=== PATIENT | female | born 1940 | race Caucasian/White ===

== ENCOUNTER → 2017-03-13 | Outpatient (CLI) | payer SELFPAY ==
[2017-03-13 13:37] LABS: CHCM 33.5; HCT 40.4 % (34.0-46.0); HDW 2.55; HGB 13.8 gm/dL (11.4-16.0); MCH 30.7 pg (25.0-35.0); MCHC 34.1 g/dL (31.0-37.0); MCV 90.1 fL (80.0-100.0); Mean Platelet Volume 6.7; RBC 4.48 m/uL (3.80-5.40); RDW 13.9 % (11.5-15.5); WBC 7.8 k/uL (3.8-10.6)
[2017-03-13 15:05] LABS: Erythrocyte Sedimentation Rate 4 mm/hr (0-20)
== END | disposition home or self-care (01) ==
LOC: LABWHC1 13:13
PROVIDERS: ATTEND Ophthalmology
DX: H47.012 Ischemic optic neuropathy, left eye (principal)
CPT/HCPCS: 36415; 85027; 85652; 86140

== ENCOUNTER 2017-03-20 11:13 | Day surgery (SDC) | payer SELFPAY ==
[2017-03-19 13:55] VITALS: BMI 23.5
[~2017-03-20 11:13] MED LIST: DEXAMETHASONE SOD PHOSPHATE 10 MG/ML 1 ML VIAL IV ONE; LACTATED RINGERS 1,000 ML IV SCH; LIDOCAINE 1% 20 ML VIAL (10MG/ML) FOR IV START INTRADERMA PRN; Pre Op ABX Message 1 EACH MISC MISCELLANE ONE
[2017-03-20 11:39] VITALS: TEMP 98.2
--- NOTE | 2017-03-20 11:42 | P.GSHP ---
History of Present Illness H&P Date: 03/20/17 Chief Complaint: Partial left eye blindness This patient previously had an episode of right eye blindness and has minimal vision in that eye. She has had a bit of partial left eye blindness. Temporal artery biopsy was requested by ophthalmology. - Constitutional Constitutional: Reports chronic pain, Denies chills, Denies fever - EENT Eyes: denies blurred vision, denies pain Ears, nose, mouth and throat: Denies headache, Denies sore throat - Cardiovascular Cardiovascular: Denies chest pain, Denies dyspnea on exertion, Denies orthopnea , Denies shortness of breath - Respiratory Respiratory: Denies cough, Denies 7 - Gastrointestinal Gastrointestinal: Denies abdominal pain, Denies diarrhea, Denies nausea, Denies vomiting - Genitourinary (Female) Genitourinary: Denies dysuria, Denies hematuria - Genitourinary (Male) Genitourinary: Denies dysuria, Denies hematuria - Musculoskeletal Comment: Patient has severe rheumatoid arthritis and other forms of rheumatoid disease Musculoskeletal: Denies myalgias - Integumentary Integumentary: Denies pruritus, Denies rash - Neurological Neurological: Denies numbness, Denies weakness - Psychiatric Psychiatric: Denies anxiety, Denies depression - Endocrine Endocrine: Denies fatigue, Denies weight change - Hematologic/Lymphatic Hematologic/Lymphatic: Denies easy bleeding, Denies easy bruising, Denies lymphedema - Allergic/Immunologic Allergic/Immunologic: Denies anaphylaxis, Denies angioedema, Denies urticaria Past Medical History Past Medical History: Eye Disorder, GERD/Reflux, Rheumatoid Arthritis (RA), Thyroid Disorder Additional Past Medical History / Comment(s): HX OF DIVERTICULITIS , OVER ACTIVE BLADDER., H- PYLORI., 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 , STATES LEFT EYE LOSING BLOOD FLOW AND POOR VISION., HX OF MULTIPLE FEET SURGERIES WITH PARTIAL LEFT FOOT AMPUTATION - DIFFICULTY WALKING DISTANCE - USES WHEELCHAIR. 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 History of Any Multi-Drug Resistant Organisms: MRSA Date of last positivie culture/infection: ?2006 MDRO Source:: SKIN Past Surgical History: Appendectomy, Back Surgery, Cholecystectomy, Hernia Repair, Hysterectomy, Joint Replacement, Orthopedic Surgery Additional Past Surgical History / Comment(s): HEMORRHOIDS, TOTAL LEFT KNEE, RIGHT ANKLE, BRADLEY SHOULDERS, JOINTS IN HANDS, , NUMBEROUS FOOT SURGERIES AND PARTIAL LEFT FOOT AMPUTATION. Past Anesthesia/Blood Transfusion Reactions: No Reported Reaction Additional Past Anesthesia/Blood Transfusion Reaction / Comment(s): HX OF BLOOD TRANSFUSIONS ( NO REACTIONS) Past Psychological History: Anxiety Smoking Status: Former smoker Past Alcohol Use History: None Reported Additional Past Alcohol Use History / Comment(s): QUIT SMOKING 1996. SMOKED SOCIALLY. SMOKED APPROX. 43 YEARS. Past Drug Use History: None Reported - Past Family History Sister(s) Family Medical History: Cancer Additional Family Medical History / Comment(s): LUNG CANCER Medications and Allergies Home Medications Medication Instructions Recorded Confirmed Type Acetaminophen Tab [Tylenol Tab] 500 mg PO QID PRN 03/19/17 03/19/17 History Atorvastatin [Lipitor] 5 mg PO DAILY 03/19/17 03/19/17 History Cholecalciferol (Vitamin D3) 2,000 unit PO DAILY 03/19/17 03/19/17 History [Vitamin D3] Diclofenac Sodium Gel [Voltaren 2 gm TOPICAL QID PRN 03/19/17 03/19/17 History Gel] Docusate [Colace] 100 mg PO BID PRN 03/19/17 03/19/17 History LORazepam [Ativan] 1 mg PO HS 03/19/17 03/19/17 History Levothyroxine Sodium [Synthroid] 175 mcg PO DAILY 03/19/17 03/19/17 History [place]-3 Fatty Acids/Fish Oil [Fish 1 each PO DAILY 03/19/17 03/19/17 History Oil 1,000 mg Softgel] Oxybutynin Chloride [Ditropan] 5 mg PO HS 03/19/17 03/19/17 History Pantoprazole [Protonix] 40 mg PO BID 03/19/17 03/19/17 History predniSONE 20 mg PO TID 03/19/17 03/19/17 History Allergies Allergy/AdvReac Type Severity Reaction Status Date / Time adalimumab [From Humira] Allergy Unknown Palpitations, Verified 03/19/17 13:28 Sweats adhesive Allergy Unknown Unknown Verified 03/19/17 13:28 codeine Allergy Unknown Unknown Verified 03/19/17 13:28 latex Allergy Unknown Unknown Verified 03/19/17 13:36 morphine Allergy Unknown Unknown Verified 03/19/17 13:28 rofecoxib [From Vioxx] Allergy Unknown Palpitations, Verified 03/19/17 13:28 Sweats. methotrexate Allergy Palpitations, Verified 03/19/17 13:28 Sweats aspirin AdvReac Unknown Upset Verified 03/19/17 13:28 Stomach faust inhibitors Allergy Unknown Unknown Uncoded 03/19/17 13:28 gold Allergy Unknown Unknown Uncoded 03/19/17 13:28 Surgical - Exam Osteopathic Statement: *. No significant issues noted on an osteopathic structural exam other than those noted in the History and Physical/Consult. Vital Signs Temp Pulse Resp BP Pulse Ox 98.2 F 56 L 16 166/70 95 03/20/17 11:37 03/20/17 11:37 03/20/17 11:37 03/20/17 11:37 03/20/17 11:37 - General well developed, well nourished, no distress - Eyes normal ocular movement, no icteric - ENT no hearing loss, no congestion - Neck no masses, no bruits, trachea midline - Respiratory normal expansion, normal respiratory effort, clear to auscultation - Cardiovascular Rhythm: regular - Abdomen Abdomen: soft, non tender, no guarding, no rigid, no rebound - Integumentary no rash, no abnormal pigmentation - Neurologic no disoriented, no combative - Musculoskeletal Patient has deformities of the hands and feet secondary to rheumatoid arthritis. She is status post left transmetatarsal amputation. - Psychiatric oriented to time, oriented to person, oriented to place, speech is normal, memory intact Assessment and Plan (1) Temporal arteritis Status: Acute Plan: We discussed with the patient the options. She wishes to proceed as requested by ophthalmology with left temporal artery biopsy. We discussed the procedure and its risks in detail with her and her .
[2017-03-20] MEDS ORDERED: ONDANSETRON 4 MG/2 ML VIAL IVP ONE (12:01)
[2017-03-20 12:02] LABS: Glucose,Whole Blood 95 mg/dL (75-99)
[2017-03-20] MEDS ORDERED: LIDOCAINE 1% INJ 10MG/ML (20 ML MDV) SQ ONE ×2 (12:38)
[2017-03-20 13:39] VITALS: BP 125/66; PULSE 59; RESP 18
--- NOTE | 2017-03-27 13:32 | P.PCN ---
Date of Procedure: 03/20/17 Preoperative Diagnosis: Temporal arteritis Postoperative Diagnosis: Same Procedure(s) Performed: Left temporal artery biopsy Implants: Anesthesia: local (1% lidocaine plain) Surgeon: Jonas Silva Estimated Blood Loss (ml): 20 Pathology: none sent (Left temporal artery) Condition: stable Disposition: PACU Indications for Procedure: Patient has left eye vision loss. Operative Findings: No significant abnormalities were seen Description of Procedure: With the patient supine position, under benefit of locally infiltrated lidocaine , having been prepped and draped in standard fashion, we made an incision just anterior to the left ear. We kept our incision above the external auditory canal. We exposed the temporal artery. We dissected out a generous segment of the left temporal artery. We ligated it proximally and distally and cut in between. We sent the specimen for pathology review. Hemostasis was excellent after establishing it with electrocautery. We closed the incision with subcuticular Vicryl. Sterile dressings were applied. The patient tolerated the procedure well and was taken recovery area in stable condition.
== END 2017-03-20 13:59 | disposition home or self-care (01) ==
LOC: OR 11:13
PROVIDERS: ATTEND Thoracic Surgery (Cardiothoracic Vascular Surgery)
DX: I77.3 Arterial fibromuscular dysplasia (principal); K21.9 Gastro-esophageal reflux disease without esophagitis; H54.12 Blindness, left eye, low vision right eye; I69.398 Other sequelae of cerebral infarction; M06.9 Rheumatoid arthritis, unspecified; E07.9 Disorder of thyroid, unspecified; N32.81 Overactive bladder; Z87.891 Personal history of nicotine dependence; Z79.52 Long term (current) use of systemic steroids; Z79.899 Other long term (current) drug therapy; Z88.6 Allergy status to analgesic agent; Z91.040 Latex allergy status; Z88.5 Allergy status to narcotic agent; Z88.8 Allergy status to other drugs, medicaments and biological substances; Z91.09 Other allergy status, other than to drugs and biological substances
CPT/HCPCS: 88305; 37609; J1100; J2405; J2001

== ENCOUNTER 2018-07-27 09:06 | Emergency (ER) | payer OTHER ==
[2018-07-27 09:12] VITALS: RESP 16; TEMP 97.3
[2018-07-27] MEDS ORDERED: SODIUM CHLORIDE 0.9% 1,000 ML IV STA (09:35)
[2018-07-27] MEDS ORDERED: LORazepam 2 MG/ML INJ IV STA (09:35)
[2018-07-27 10:12] LABS: Basophils # (A) 0.1 k/uL (0-0.2); Basophils % (A) 1 %; Eosinophils # (A) 0.1 k/uL (0-0.7); Eosinophils % (A) 2 %; HCT 44.6 % (34.0-46.0); HGB 15.1 gm/dL (11.4-16.0); Lymphocytes # (A) 1.7 k/uL (1.0-4.8); Lymphocytes % (A) 20 %; MCH 29.9 pg (25.0-35.0); MCHC 33.9 g/dL (31.0-37.0); MCV 88.2 fL (80.0-100.0); Mean Platelet Volume 6.8; Monocytes # (A) 0.4 k/uL (0-1.0); Monocytes % (A) 5 %; Neutrophils % (A) 72 %; Platelet Count 216 k/uL (150-450); RBC 5.05 m/uL (3.80-5.40); WBC 8.3 k/uL (3.8-10.6)
--- NOTE | 2018-07-27 10:21 | ED ---
General Adult HPI - General Chief complaint: Back Pain/Injury Stated complaint: back pain Time Seen by Provider: 07/27/18 09:25 Source: patient, RN notes reviewed Mode of arrival: wheelchair Limitations: no limitations - History of Present Illness Initial comments: Patient 78-year-old female presented to the emergency room today with a chief complaint of lower back pain. Patient does admit that symptoms started 4 days ago. She states she had pain in the left lower side. She states it is now radiating over to the right. She does admit some discomfort in the front as well. Patient states normal bowel movement. No diarrhea. Does admit that pain is worse with movements. Denies any injury or trauma. Denies any other complaints. Patient denies any recent fever, chills, shortness of breath, chest pain, back pain, abdominal pain, nausea or vomiting, numbness or tingling, headaches or visual changes, or any other complaints. - Related Data Home Medications Medication Instructions Recorded Confirmed Acetaminophen Tab [Tylenol Tab] 500 mg PO TID PRN 03/19/17 07/27/18 Atorvastatin [Lipitor] 5 mg PO DAILY 03/19/17 07/27/18 Cholecalciferol (Vitamin D3) 2,000 unit PO DAILY 03/19/17 07/27/18 [Vitamin D3] Docusate [Colace] 100 mg PO BID PRN 03/19/17 07/27/18 LORazepam [Ativan] 1 mg PO HS 03/19/17 07/27/18 Oxybutynin Chloride [Ditropan] 5 mg PO HS 03/19/17 07/27/18 Pantoprazole [Protonix] 40 mg PO BID 03/19/17 07/27/18 Apixaban [Eliquis] 2.5 mg PO BID 07/27/18 07/27/18 L.acidoph,Paracasei, B.lactis 1 cap PO BID 07/27/18 07/27/18 [Probiotic] Levothyroxine Sodium [Synthroid] 75 mcg PO DAILY 07/27/18 07/27/18 predniSONE 10 mg PO BID 07/27/18 07/27/18 Allergies Allergy/AdvReac Type Severity Reaction Status Date / Time adalimumab [From Humira] Allergy Unknown Palpitations, Verified 07/27/18 09:23 Sweats adhesive Allergy Unknown Unknown Verified 07/27/18 09:23 codeine Allergy Unknown Unknown Verified 07/27/18 09:23 latex Allergy Unknown Unknown Verified 07/27/18 09:23 morphine Allergy Unknown Unknown Verified 07/27/18 09:23 rofecoxib [From Vioxx] Allergy Unknown Palpitations, Verified 07/27/18 09:23 Sweats. methotrexate Allergy Palpitations, Verified 07/27/18 09:23 Sweats Sulfa (Sulfonamide Allergy Unknown Verified 07/27/18 09:23 Antibiotics) aspirin AdvReac Unknown Upset Verified 07/27/18 09:23 Stomach faust inhibitors Allergy Unknown Unknown Uncoded 07/27/18 09:12 gold Allergy Unknown Unknown Uncoded 07/27/18 09:12 Review of Systems ROS Statement: Those systems with pertinent positive or pertinent negative responses have been documented in the HPI. ROS Other: All systems not noted in ROS Statement are negative. 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 , STATES LEFT EYE LOSING BLOOD FLOW AND POOR VISION., HX OF MULTIPLE FEET SURGERIES WITH PARTIAL LEFT FOOT AMPUTATION - DIFFICULTY WALKING DISTANCE - USES WHEELCHAIR. 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 History of Any Multi-Drug Resistant Organisms: MRSA Date of last positivie culture/infection: ?2006 MDRO Source:: SKIN Past Surgical History: Appendectomy, Back Surgery, Cholecystectomy, Hernia Repair, Hysterectomy, Joint Replacement, Orthopedic Surgery Additional Past Surgical History / Comment(s): HEMORRHOIDS, TOTAL LEFT KNEE, RIGHT ANKLE, BRADLEY SHOULDERS, JOINTS IN HANDS, , NUMBEROUS FOOT SURGERIES AND PARTIAL LEFT FOOT AMPUTATION. Past Anesthesia/Blood Transfusion Reactions: No Reported Reaction Additional Past Anesthesia/Blood Transfusion Reaction / Comment(s): HX OF BLOOD TRANSFUSIONS ( NO REACTIONS) Past Psychological History: Anxiety Smoking Status: Former smoker Past Alcohol Use History: None Reported Past Drug Use History: None Reported - Past Family History Sister(s) Family Medical History: Cancer Additional Family Medical History / Comment(s): LUNG CANCER General Exam - General Exam Comments Initial Comments: General: The patient is awake and alert, in mild distress. Eye: Pupils are equal, round and reactive to light. Extra-ocular movements are intact. No nystagmus. There is normal conjunctiva bilaterally. No signs of icterus. Ears, nose, mouth and throat: There are moist mucous membranes and no oral lesions. Neck: The neck is supple, there is no tenderness or JVD. Cardiovascular: There is a regular rate and rhythm. No murmur, rub or gallop is appreciated. Respiratory: Lungs are clear to auscultation, respirations are non-labored, breath sounds are equal. No wheezes, stridor, rales, or rhonchi. Gastrointestinal: Abdomen soft on palpation. Patient does have tenderness right lower quadrant. Mild tenderness over left and right CVA. No rebound or guarding. Musculoskeletal: Normal ROM, no tenderness. Sensation intact. Strength 5/5. Pulses equal bilaterally 2+. Neurological: A&O x 3. CN II-XII intact, There are no obvious motor or sensory deficits. Coordination appears grossly intact. Speech is normal. Skin: Skin is warm and dry and no rashes or lesions are noted. Psychiatric: Cooperative, appropriate mood & affect, normal judgment. Limitations: no limitations Course Vital Signs 07/27/18 07/27/18 09:07 12:03 Temperature 97.3 F L Pulse Rate 86 70 Respiratory 16 16 Rate Blood Pressure 150/72 162/76 O2 Sat by Pulse 99 100 Oximetry EKG Findings - EKG Comments: EKG Findings:: EKG performed at 1044: Shows normal sinus rhythm at 60 bpm. KS interval 60. QRS 70. QT/QTc 420/420. No acute changes. Medical Decision Making - Medical Decision Making Case discussed in detail with attending physician Dr. Cohen. Patient reexamined at this time shows no signs of distress. Her CT of the abdomen and pelvis did reveal some degenerative changes in the lower lumbar spine. Did show some fecal stasis. No sign of obstruction. No other acute findings. Patient was given enema here the emergency room by nursing staff. Patient feeling much better at this time. Patient's labs were reviewed. Patient is advised follow-up family doctor tomorrow. Patient will be discharged home advised return if any symptoms increase or worsen. - Lab Data Result diagrams: 07/27/18 10:00 07/27/18 09:58 Lab Results 07/27/18 07/27/18 07/27/18 Range/Units 09:58 10:00 10:00 WBC 8.3 (3.8-10.6) k/uL RBC 5.05 (3.80-5.40) m/uL Hgb 15.1 (11.4-16.0) gm/dL Hct 44.6 (34.0-46.0) % MCV 88.2 (80.0-100.0) fL MCH 29.9 (25.0-35.0) pg MCHC 33.9 (31.0-37.0) g/dL RDW 14.0 (11.5-15.5) % Plt Count 216 (150-450) k/uL Neutrophils % 72 % Lymphocytes % 20 % Monocytes % 5 % Eosinophils % 2 % Basophils % 1 % Neutrophils # 6.0 (1.3-7.7) k/uL Lymphocytes # 1.7 (1.0-4.8) k/uL Monocytes # 0.4 (0-1.0) k/uL Eosinophils # 0.1 (0-0.7) k/uL Basophils # 0.1 (0-0.2) k/uL PT (9.0-12.0) sec INR (<1.2) APTT (22.0-30.0) sec Sodium 140 (137-145) mmol/L Potassium 4.3 (3.5-5.1) mmol/L Chloride 107 (98-107) mmol/L Carbon Dioxide 25 (22-30) mmol/L Anion Gap 8 mmol/L BUN 17 (7-17) mg/dL Creatinine 0.81 (0.52-1.04) mg/dL Est GFR (CKD-EPI)AfAm 80 (>60 ml/min/1.73 sqM) Est GFR (CKD-EPI)NonAf 69 (>60 ml/min/1.73 sqM) Glucose 103 H (74-99) mg/dL Calcium 8.9 (8.4-10.2) mg/dL Total Bilirubin 0.5 (0.2-1.3) mg/dL AST 24 (14-36) U/L ALT 33 (9-52) U/L Alkaline Phosphatase 74 (38-126) U/L Total Creatine Kinase 68 (30-135) U/L CK-MB (CK-2) 0.4 (0.0-2.4) ng/mL CK-MB (CK-2) Rel Index 0.6 Troponin I (0.000-0.034) ng/mL Total Protein 6.7 (6.3-8.2) g/dL Albumin 4.0 (3.5-5.0) g/dL Amylase 56 (30-110) U/L Lipase 46 (23-300) U/L Urine Color Urine Appearance (Clear) Urine pH (5.0-8.0) Ur Specific [place] (1.001-1.035) Urine Protein (Negative) Urine Glucose (UA) (Negative) Urine Ketones (Negative) Urine Blood (Negative) Urine Nitrite (Negative) Urine Bilirubin (Negative) Urine Urobilinogen (<2.0) mg/dL Ur Leukocyte Esterase (Negative) 07/27/18 07/27/18 07/27/18 Range/Units 10:00 10:00 10:35 WBC (3.8-10.6) k/uL RBC (3.80-5.40) m/uL Hgb (11.4-16.0) gm/dL Hct (34.0-46.0) % MCV (80.0-100.0) fL MCH (25.0-35.0) pg MCHC (31.0-37.0) g/dL RDW (11.5-15.5) % Plt Count (150-450) k/uL Neutrophils % % Lymphocytes % % Monocytes % % Eosinophils % % Basophils % % Neutrophils # (1.3-7.7) k/uL Lymphocytes # (1.0-4.8) k/uL Monocytes # (0-1.0) k/uL Eosinophils # (0-0.7) k/uL Basophils # (0-0.2) k/uL PT 10.3 (9.0-12.0) sec INR 1.1 (<1.2) APTT 22.1 (22.0-30.0) sec Sodium (137-145) mmol/L Potassium (3.5-5.1) mmol/L Chloride (98-107) mmol/L Carbon Dioxide (22-30) mmol/L Anion Gap mmol/L BUN (7-17) mg/dL Creatinine (0.52-1.04) mg/dL Est GFR (CKD-EPI)AfAm (>60 ml/min/1.73 sqM) Est GFR (CKD-EPI)NonAf (>60 ml/min/1.73 sqM) Glucose (74-99) mg/dL Calcium (8.4-10.2) mg/dL Total Bilirubin (0.2-1.3) mg/dL AST (14-36) U/L ALT (9-52) U/L Alkaline Phosphatase (38-126) U/L Total Creatine Kinase (30-135) U/L CK-MB (CK-2) (0.0-2.4) ng/mL CK-MB (CK-2) Rel Index Troponin I <0.012 (0.000-0.034) ng/mL Total Protein (6.3-8.2) g/dL Albumin (3.5-5.0) g/dL Amylase (30-110) U/L Lipase (23-300) U/L Urine Color Light Yellow Urine Appearance Clear (Clear) Urine pH 5.5 (5.0-8.0) Ur Specific [place] 1.004 (1.001-1.035) Urine Protein Negative (Negative) Urine Glucose (UA) Negative (Negative) Urine Ketones Negative (Negative) Urine Blood Negative (Negative) Urine Nitrite Negative (Negative) Urine Bilirubin Negative (Negative) Urine Urobilinogen <2.0 (<2.0) mg/dL Ur Leukocyte Esterase Negative (Negative) Disposition Clinical Impression: Abdominal pain, Low back pain Disposition: HOME SELF-CARE Condition: Good Instructions: Abdominal Pain (ED) Additional Instructions: Please follow-up with family doctor tomorrow. Please return to emergency room if the symptoms increase or worsen or for any other concerns. Is patient prescribed a controlled substance at d/c from ED?: No Referrals: None,Stated [Primary Care Provider] - 1-2 days Time of Disposition: 13:57
[2018-07-27 10:23] LABS: INR 1.1 (<1.2); Partial Thromboplastin Time 22.1 sec (22.0-30.0); Prothrombin Time 10.3 sec (9.0-12.0)
[2018-07-27 10:25] LABS: Calcium 8.9 mg/dL (8.4-10.2); Potassium 4.3 mmol/L (3.5-5.1); Total Bilirubin 0.5 mg/dL (0.2-1.3); Total Protein 6.7 g/dL (6.3-8.2)
[2018-07-27 10:50] LABS: Creatine Kinase MB 0.4 ng/mL (0.0-2.4)
[2018-07-27 11:07] LABS: Appearance,Urine Clear (Clear); Bilirubin,Urine Negative (Negative); Blood,Urine Negative (Negative); Color,Urine Light Yellow; Glucose,Urine (UA) Negative (Negative); Ketones,Urine Negative (Negative); Leukocyte Esterase,Urine Negative (Negative); Nitrite,Urine Negative (Negative); PH, Urine 5.5 (5.0-8.0); Protein,Urine Negative (Negative); Specific Gravity,Urine 1.004 (1.001-1.035); Urobilinogen,Urine <2.0 mg/dL (<2.0)
--- NOTE | 2018-07-27 12:05 | CT ---
EXAMINATION TYPE: CT abdomen pelvis w con DATE OF EXAM: 07/27/2018 COMPARISON: None HISTORY: Back pain CT DLP: 695.50 mGycm CONTRAST: CT scan of the abdomen and pelvis is performed without Oral Contrast and with IV Contrast, patient in jected with 100 ml mL of Isovue 300. FINDINGS: LUNG BASES-: No visible nodule. No infiltrate. LIVER/GB: Cholecystectomy changes noted. No space occupying hepatic lesion. Biliary tree is of nor mal caliber. PANCREAS: No inflammation. No distinct mass. SPLEEN: No splenic enlargement. No lesion seen. ADRENALS: No nodule. No thickening. KIDNEYS/BLADDER: No hydronephrosis. No nephrolithiasis. No distinct renal mass. Urinary bladder g rossly unremarkable. BOWEL: Normal appendix. Normal bowel caliber. No inflammation. Moderate the rectosigmoid fecal fabian is. GENITAL ORGANS: No gross abnormality. LYMPH NODES: No greater than 1cm abdominal or pelvic lymph nodes are appreciated. AORTA: No significant abnormality. OSSEOUS STRUCTURES: Severe degenerative disc disease throughout the lumbar spine with endplate sclero sis and spondylosis. Mild central stenosis suggested at L3-4 and L4-5. OTHER: No significant additional abnormality is seen. IMPRESSION: 1. No acute intra-abdominal process appreciated. 2.Severe degenerative disc disease throughout the lumbar spine with endplate sclerosis and spondylosi s. Mild central stenosis suggested at L3-4 and L4-5. 3.. Moderate the rectosigmoid fecal stasis.
[2018-07-27 14:10] VITALS: BP 150/73; PULSE 72
== END 2018-07-27 14:05 | disposition home or self-care (01) ==
LOC: EC 09:06
DX: M54.5 Low back pain (principal); R10.9 Unspecified abdominal pain; K21.9 Gastro-esophageal reflux disease without esophagitis; F41.9 Anxiety disorder, unspecified; E07.9 Disorder of thyroid, unspecified; Z87.891 Personal history of nicotine dependence; Z86.14 Personal history of Methicillin resistant Staphylococcus aureus infection; Z86.73 Personal history of transient ischemic attack (TIA), and cerebral infarction without residual deficits; Z90.49 Acquired absence of other specified parts of digestive tract; Z90.710 Acquired absence of both cervix and uterus; Z96.652 Presence of left artificial knee joint; Z89.432 Acquired absence of left foot; Z98.890 Other specified postprocedural states; Z79.01 Long term (current) use of anticoagulants; Z79.52 Long term (current) use of systemic steroids; Z79.899 Other long term (current) drug therapy; Z88.2 Allergy status to sulfonamides; Z88.5 Allergy status to narcotic agent; Z88.6 Allergy status to analgesic agent; Z88.8 Allergy status to other drugs, medicaments and biological substances; Z91.040 Latex allergy status; Z91.048 Other nonmedicinal substance allergy status
CPT/HCPCS: 36415; 93005; 80053; 82150; 82550; 82553; 83690; 84484; 85025; 85610; 85730; 81003; 74177; 99284; 96374; 96361; J2060; Q9967

== ENCOUNTER 2018-07-30 12:30 | Emergency (ER) | payer OTHER ==
[2018-07-30] MEDS ORDERED: SODIUM CHLORIDE 0.9% 500 ML 500 ML IV STA (13:12)
[2018-07-30] MEDS ORDERED: LORazepam 2 MG/ML INJ IV STA (13:13)
[2018-07-30] MEDS ORDERED: DIAZEPAM 5 MG/ML 2 ML INJ IVP STA (13:17)
--- NOTE | 2018-07-30 13:30 | ED ---
General Adult HPI - General Chief complaint: Back Pain/Injury Stated complaint: back pain Time Seen by Provider: 07/30/18 12:49 Source: patient, family, RN notes reviewed Mode of arrival: ambulatory Limitations: no limitations - History of Present Illness Initial comments: 78-year-old female with a past medical history of rheumatoid arthritis, GERD, diverticulitis presents to the emergency determine for a chief complaint of right lower back pain times 8 days. Patient states the pain starts in her right lower back and radiates into her right hip. Patient states the pain is worsened with walking and sitting certain ways. She states nothing makes the pain better. She states she did take extra strength Tylenol today. Patient also states she has pain in her lower abdomen. Patient states she was given an enema at the last time she was here which may have helped momentarily but states that it did not relieve her pain. She has not had a bowel movement in the past 2 days. She denies any difficulty urinating. She denies any numbness in the greater buttock. She denies any weakness in the legs. She does admit to lumbar spine surgery 15 years ago. Patient also has a history of appendectomy and cholecystectomy with multiple orthopedic surgeries and joint replacements. 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 Patient has no other complaints at this time including shortness of breath, chest pain, nausea or vomiting, headache, or visual changes. - Related Data Home Medications Medication Instructions Recorded Confirmed Atorvastatin [Lipitor] 5 mg PO DAILY 03/19/17 07/30/18 Docusate [Colace] 100 mg PO BID PRN 03/19/17 07/30/18 LORazepam [Ativan] 0.5 - 1 mg PO HS 03/19/17 07/30/18 Oxybutynin Chloride [Ditropan] 5 mg PO HS 03/19/17 07/30/18 Pantoprazole [Protonix] 40 mg PO BID 03/19/17 07/30/18 Apixaban [Eliquis] 2.5 mg PO BID 07/27/18 07/30/18 Levothyroxine Sodium [Synthroid] 75 mcg PO DAILY 07/27/18 07/30/18 predniSONE 5 mg PO DAILY 07/30/18 07/30/18 Previous Rx's Medication Instructions Recorded predniSONE 50 mg PO DAILY #5 tablet 07/30/18 Allergies Allergy/AdvReac Type Severity Reaction Status Date / Time adalimumab [From Humira] Allergy Unknown Palpitations, Verified 07/30/18 16:01 Sweats adhesive Allergy Unknown Unknown Verified 07/30/18 16:01 codeine Allergy Unknown Unknown Verified 07/30/18 16:01 latex Allergy Unknown Unknown Verified 07/30/18 16:01 morphine Allergy Unknown Unknown Verified 07/30/18 16:01 rofecoxib [From Vioxx] Allergy Unknown Palpitations, Verified 07/30/18 16:01 Sweats. methotrexate Allergy Palpitations, Verified 07/30/18 16:01 Sweats Sulfa (Sulfonamide Allergy Unknown Verified 07/30/18 16:01 Antibiotics) aspirin AdvReac Unknown Upset Verified 07/30/18 16:01 Stomach faust inhibitors Allergy Unknown Unknown Uncoded 07/30/18 12:36 gold Allergy Unknown Unknown Uncoded 07/30/18 12:36 Review of Systems ROS Statement: Those systems with pertinent positive or pertinent negative responses have been documented in the HPI. ROS Other: All systems not noted in ROS Statement are negative. 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 , STATES LEFT EYE LOSING BLOOD FLOW AND POOR VISION., HX OF MULTIPLE FEET SURGERIES WITH PARTIAL LEFT FOOT AMPUTATION - DIFFICULTY WALKING DISTANCE - USES WHEELCHAIR. 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 History of Any Multi-Drug Resistant Organisms: MRSA Date of last positivie culture/infection: ?2006 MDRO Source:: SKIN Past Surgical History: Appendectomy, Back Surgery, Cholecystectomy, Hernia Repair, Hysterectomy, Joint Replacement, Orthopedic Surgery Additional Past Surgical History / Comment(s): HEMORRHOIDS, TOTAL LEFT KNEE, RIGHT ANKLE, BRADLEY SHOULDERS, JOINTS IN HANDS, , NUMBEROUS FOOT SURGERIES AND PARTIAL LEFT FOOT AMPUTATION. Past Anesthesia/Blood Transfusion Reactions: No Reported Reaction Additional Past Anesthesia/Blood Transfusion Reaction / Comment(s): HX OF BLOOD TRANSFUSIONS ( NO REACTIONS) Past Psychological History: Anxiety Smoking Status: Former smoker Past Alcohol Use History: None Reported Past Drug Use History: None Reported - Past Family History Sister(s) Family Medical History: Cancer Additional Family Medical History / Comment(s): LUNG CANCER General Exam Limitations: no limitations General appearance: alert, in no apparent distress Head exam: Present: atraumatic, normocephalic, normal inspection Eye exam: Present: normal appearance, PERRL, EOMI. Absent: scleral icterus, conjunctival injection, periorbital swelling ENT exam: Present: normal exam, mucous membranes moist Neck exam: Present: normal inspection, full ROM. Absent: tenderness, meningismus, lymphadenopathy Respiratory exam: Present: normal lung sounds bilaterally. Absent: respiratory distress, wheezes, rales, rhonchi, stridor Cardiovascular Exam: Present: regular rate, normal rhythm, normal heart sounds. Absent: systolic murmur, diastolic murmur, rubs, gallop, clicks GI/Abdominal exam: Present: soft, tenderness (tenderness noted in the RLQ ), guarding (minimal guarding noted in the right lower quadrant, ), normal bowel sounds. Absent: distended, rebound, rigid Rectal exam: Present: normal inspection, normal rectal tone. Absent: fecal impaction Extremities exam: Present: tenderness (tenderness to palpation of right lateral hip), normal capillary refill (cap refill < 2 seconds, DP pulse 2+ in RLE), other (full passive flexion and extension of right hip, limited external rotation of right hip to about 15 degrees with increased pain) Back exam: Present: tenderness (Tenderness noted to the right low back around the SI joint. No lumbar spine tenderness). Absent: full ROM (45 degrees flexion of lumbar spine causing increased pain), vertebral tenderness Neurological exam: Present: alert, oriented X3, CN II-XII intact Psychiatric exam: Present: normal affect, normal mood Course Vital Signs 07/30/18 07/30/18 07/30/18 12:34 14:17 17:18 Temperature 97.8 F 97.9 F Pulse Rate 79 63 57 L Respiratory 24 22 16 Rate Blood Pressure 156/92 158/77 126/64 O2 Sat by Pulse 97 99 100 Oximetry EKG Findings - EKG Comments: EKG Findings:: Normal sinus rhythm, ventricular rate 60, VT interval 114, QRS duration 70, QTC 440 Medical Decision Making - Medical Decision Making 78-year-old female presents to the emergency department for chief complaint of right-sided back pain 8 days. Patient states the pain starts in her right lower back and radiates into her right hip. Pain is worsened with movement. Nothing seems to make it better although she did take Tylenol. Patient in its to mild pain in the lower abdomen states she was given an enema which may have helped momentarily but did not relieve her pain. She denies any difficulty urinating or numbness of the greater buttock. No weakness in the legs. On exam patient has full passive range of motion of the right hip with pain with external rotation of the right hip. Neurovascular intact in the right lower extremity. Tenderness noted to the right SI joint and right lateral hip. Patient is about 45 flexion of the lumbar spine. Patient is having episodes of incontinence here in the ER. She states this does sometimes occur however it is much worse than normal. Rectal tone intact. Patient also had a post void residual of 525. Due to nature of incontinence and back pain MRI was ordered which showed no cord compression however severe forming on the narrowing L4 to L5 on the left at L3 to L4 on the right. Patient was able to empty her bladder using bed lazaro. X-ray KUB showed a nonobstructive bowel gas pattern. Patient had a CT abdomen and pelvis a few days ago without any significant abnormalities. Patient was given Valium and 2 of morphine and is feeling significantly better. Did offer admission for pain control the patient states she would rather go home. Patient was given prednisone. She will follow -up with Dr. Priec. She'll return here if she has any worsening symptoms. Discussed with Dr robbins. Patient did give me permission and asked me to speak with insurance company. - Lab Data Result diagrams: 07/30/18 13:47 07/30/18 13:47 Lab Results 07/30/18 07/30/18 07/30/18 Range/Units 13:47 13:47 13:47 WBC 8.7 (3.8-10.6) k/uL RBC 5.11 (3.80-5.40) m/uL Hgb 15.3 (11.4-16.0) gm/dL Hct 44.5 (34.0-46.0) % MCV 87.2 (80.0-100.0) fL MCH 30.0 (25.0-35.0) pg MCHC 34.4 (31.0-37.0) g/dL RDW 14.0 (11.5-15.5) % Plt Count 225 (150-450) k/uL Neutrophils % 68 % Lymphocytes % 25 % Monocytes % 5 % Eosinophils % 1 % Basophils % 0 % Neutrophils # 5.9 (1.3-7.7) k/uL Lymphocytes # 2.2 (1.0-4.8) k/uL Monocytes # 0.4 (0-1.0) k/uL Eosinophils # 0.1 (0-0.7) k/uL Basophils # 0.0 (0-0.2) k/uL PT 10.2 (9.0-12.0) sec INR 1.0 (<1.2) APTT 22.6 (22.0-30.0) sec Sodium 140 (137-145) mmol/L Potassium 4.6 (3.5-5.1) mmol/L Chloride 105 (98-107) mmol/L Carbon Dioxide 25 (22-30) mmol/L Anion Gap 10 mmol/L BUN 16 (7-17) mg/dL Creatinine 0.87 (0.52-1.04) mg/dL Est GFR (CKD-EPI)AfAm 73 (>60 ml/min/1.73 sqM) Est GFR (CKD-EPI)NonAf 63 (>60 ml/min/1.73 sqM) Glucose 98 (74-99) mg/dL Calcium 9.6 (8.4-10.2) mg/dL Total Bilirubin 1.0 (0.2-1.3) mg/dL AST 32 (14-36) U/L ALT 42 (9-52) U/L Alkaline Phosphatase 63 (38-126) U/L Total Protein 6.9 (6.3-8.2) g/dL Albumin 4.2 (3.5-5.0) g/dL Urine Color Urine Appearance (Clear) Urine pH (5.0-8.0) Ur Specific [place] (1.001-1.035) Urine Protein (Negative) Urine Glucose (UA) (Negative) Urine Ketones (Negative) Urine Blood (Negative) Urine Nitrite (Negative) Urine Bilirubin (Negative) Urine Urobilinogen (<2.0) mg/dL Ur Leukocyte Esterase (Negative) 07/30/18 Range/Units 14:19 WBC (3.8-10.6) k/uL RBC (3.80-5.40) m/uL Hgb (11.4-16.0) gm/dL Hct (34.0-46.0) % MCV (80.0-100.0) fL MCH (25.0-35.0) pg MCHC (31.0-37.0) g/dL RDW (11.5-15.5) % Plt Count (150-450) k/uL Neutrophils % % Lymphocytes % % Monocytes % % Eosinophils % % Basophils % % Neutrophils # (1.3-7.7) k/uL Lymphocytes # (1.0-4.8) k/uL Monocytes # (0-1.0) k/uL Eosinophils # (0-0.7) k/uL Basophils # (0-0.2) k/uL PT (9.0-12.0) sec INR (<1.2) APTT (22.0-30.0) sec Sodium (137-145) mmol/L Potassium (3.5-5.1) mmol/L Chloride (98-107) mmol/L Carbon Dioxide (22-30) mmol/L Anion Gap mmol/L BUN (7-17) mg/dL Creatinine (0.52-1.04) mg/dL Est GFR (CKD-EPI)AfAm (>60 ml/min/1.73 sqM) Est GFR (CKD-EPI)NonAf (>60 ml/min/1.73 sqM) Glucose (74-99) mg/dL Calcium (8.4-10.2) mg/dL Total Bilirubin (0.2-1.3) mg/dL AST (14-36) U/L ALT (9-52) U/L Alkaline Phosphatase (38-126) U/L Total Protein (6.3-8.2) g/dL Albumin (3.5-5.0) g/dL Urine Color Colorless Urine Appearance Clear (Clear) Urine pH 7.0 (5.0-8.0) Ur Specific [place] 1.003 (1.001-1.035) Urine Protein Negative (Negative) Urine Glucose (UA) Negative (Negative) Urine Ketones Negative (Negative) Urine Blood Negative (Negative) Urine Nitrite Negative (Negative) Urine Bilirubin Negative (Negative) Urine Urobilinogen <2.0 (<2.0) mg/dL Ur Leukocyte Esterase Negative (Negative) Disposition Clinical Impression: Back pain Disposition: HOME SELF-CARE Condition: Good Instructions: Acute Low Back Pain (ED) Additional Instructions: Please take Tylenol for pain. Take prednisone as directed. Follow up with Dr Price in 1-2 days for severe foraminal narrowing L4 to L5 on the left and L3 to L4 on the right. Return if you have any worsening symptoms Prescriptions: predniSONE 50 mg PO DAILY #5 tablet Is patient prescribed a controlled substance at d/c from ED?: No Referrals: Nonstaff,Physician [Primary Care Provider] - 1-2 days Jon Price DO [Doctor of Osteopathic Medicine] - 1-2 days Time of Disposition: 16:49
[2018-07-30 14:05] LABS: Basophils % (A) 0 %; Eosinophils # (A) 0.1 k/uL (0-0.7); Eosinophils % (A) 1 %; HCT 44.5 % (34.0-46.0); HGB 15.3 gm/dL (11.4-16.0); Lymphocytes # (A) 2.2 k/uL (1.0-4.8); Lymphocytes % (A) 25 %; MCHC 34.4 g/dL (31.0-37.0); MCV 87.2 fL (80.0-100.0); Mean Platelet Volume 6.6; Monocytes # (A) 0.4 k/uL (0-1.0); Monocytes % (A) 5 %; Neutrophils # (A) 5.9 k/uL (1.3-7.7); Neutrophils % (A) 68 %; Platelet Count 225 k/uL (150-450); RBC 5.11 m/uL (3.80-5.40); WBC 8.7 k/uL (3.8-10.6)
[2018-07-30 14:24] LABS: Partial Thromboplastin Time 22.6 sec (22.0-30.0); Prothrombin Time 10.2 sec (9.0-12.0)
[2018-07-30 14:25] LABS: Albumin 4.2 g/dL (3.5-5.0); Calcium 9.6 mg/dL (8.4-10.2); Potassium 4.6 mmol/L (3.5-5.1); Total Protein 6.9 g/dL (6.3-8.2)
[2018-07-30 14:50] LABS: Appearance,Urine Clear (Clear); Bilirubin,Urine Negative (Negative); Blood,Urine Negative (Negative); Color,Urine Colorless; Glucose,Urine (UA) Negative (Negative); Ketones,Urine Negative (Negative); Leukocyte Esterase,Urine Negative (Negative); Nitrite,Urine Negative (Negative); Protein,Urine Negative (Negative); Specific Gravity,Urine 1.003 (1.001-1.035); Urobilinogen,Urine <2.0 mg/dL (<2.0)
[2018-07-30] MEDS ORDERED: MORPHINE SULFATE 4 MG/ML SYRINGE IVP STA (16:00)
--- NOTE | 2018-07-30 16:08 | MR ---
EXAMINATION TYPE: MR lumbar spine wo/w con DATE OF EXAM: 07/30/2018 COMPARISON: None HISTORY: Back pain, incontinence CONTRAST: 7.5 mL intravenous Gadavist. TECHNIQUE: Multiplanar, multisequence images of the lumbar spine were acquired. FINDINGS: L5-S1: Minimal disc bulge is present centrally. This has anterior thecal sac contact. No spinal canal stenosis present. Neural foramen are patent. Mild facet hypertrophy is present. L4-L5: There is loss of disc material through this level. This has mild anterior thecal sac contact. Right foramen is patent. Left foraminal stenosis to severe degree is present. Facet hypertrophy is le ft posterior lateral thecal sac compression. L3-L4: Endplate spurring has anterior thecal sac compression. No AP spinal canal stenosis present. Fa cet hypertrophy is present. Posterior lateral thecal sac compression is present slightly greater on t he right. Severe right foraminal stenosis is present. There is loss of disc height to this level. L2-L3: Mild loss of disc height is present. Disc bulging is present to the far left lateral direction . No AP spinal canal stenosis is present. Neural foramen are patent. L1-L2: Broad-based disc bulge is present with anterior thecal sac flattening. Mild facet hypertrophy with minimal posterior lateral thecal sac compression is present. Spinal canal narrowing without sten osis is present. Neural foramen are patent. T12-L1: The L1 vertebral body has superior endplate compression without posterior wall displacement. The cord terminates at the mid L1 level. No AP spinal canal stenosis present. Mild facet hypertrophy is present posterior lateral thecal sac contact. Neural foramen are patent. No abnormal enhancement. No spinal canal stenosis is evident. No posterior wall displacement is evide nt. IMPRESSION: 1. No cord compression identified. No spinal canal stenosis evident. 2. Diffuse degenerative disc changes especially L3-4 through L5-S1. 3. Old compression deformity L1. 4. Severe foraminal narrowing L4-5 on the left and L3-4 on the right
--- NOTE | 2018-07-30 16:36 | XR ---
EXAMINATION TYPE: XR KUB DATE OF EXAM: 07/30/2018 COMPARISON: NONE HISTORY: 78-year-old female back pain for one week TECHNIQUE: 04/01/2011 FINDINGS: Marked osteopenia. Degenerative changes of the hips and degenerated levoconvex scoliosis. Supine imaging limited for assessment of free air. Scattered colonic gas with mild overall stool. No dilated small bowel loops. Cholecystectomy clips. No definite suspicious calcifications. Multiple phleboliths in the pelvis. IMPRESSION: Nonobstructive bowel gas pattern. No significant stool burden.
[2018-07-30 17:20] VITALS: BP 126/64; PULSE 57; RESP 16; TEMP 97.9
== END 2018-07-30 17:26 | disposition home or self-care (01) ==
LOC: EC 12:30
DX: M48.061 Spinal stenosis, lumbar region without neurogenic claudication (principal); K21.9 Gastro-esophageal reflux disease without esophagitis; M06.9 Rheumatoid arthritis, unspecified; E07.9 Disorder of thyroid, unspecified; F41.9 Anxiety disorder, unspecified; Z86.14 Personal history of Methicillin resistant Staphylococcus aureus infection; Z87.891 Personal history of nicotine dependence; Z79.52 Long term (current) use of systemic steroids; Z79.01 Long term (current) use of anticoagulants; Z79.899 Other long term (current) drug therapy; Z88.2 Allergy status to sulfonamides; Z88.5 Allergy status to narcotic agent; Z91.040 Latex allergy status; Z91.09 Other allergy status, other than to drugs and biological substances; Z88.8 Allergy status to other drugs, medicaments and biological substances; Z91.048 Other nonmedicinal substance allergy status; Z53.8 Procedure and treatment not carried out for other reasons
CPT/HCPCS: 36415; 93005; 80053; 85025; 85610; 85730; 81003; 87040; 74018; 72158; 99284; 96374; 96375; 96361 ×3; J2270; J3360; A9585

== ENCOUNTER 2024-04-29 12:57 | Emergency (ER) | payer SELFPAY ==
[2024-04-29 13:11] VITALS: TEMP 98.1
--- NOTE | 2024-04-29 13:30 | ED ---
ENT HPI - General Chief complaint: ENT Stated complaint: nosebleed Time Seen by Provider: 04/29/24 13:28 Source: patient, family, RN notes reviewed Mode of arrival: EMS Limitations: no limitations (Patient is hard of hearing) - History of Present Illness Initial comments: 83-year-old female presented to the ER with a chief complaint of epistaxis. providing most of HPI and past medical history as patient is hard of hearing. Patient does report a distant history of epistaxis. Since 830 this morning patient has been having a nosebleed from her right nostril. No known injuries or traumas. Patient does take Eliquis. Patient reports she has been applying pressure and noticing blood on the back of her throat. She has had packing in place before and saw an ENT who planned on cauterizing blood vessel. Procedure was never performed. Patient denies any other complaints - Related Data Home Medications Medication Instructions Recorded Confirmed Atorvastatin [Lipitor] 5 mg PO DAILY 03/19/17 07/30/18 Docusate [Colace] 100 mg PO BID PRN 03/19/17 07/30/18 LORazepam [Ativan] 0.5 - 1 mg PO HS 03/19/17 07/30/18 Pantoprazole [Protonix] 40 mg PO BID 03/19/17 07/30/18 oxyBUTYnin chloride [Ditropan] 5 mg PO HS 03/19/17 07/30/18 Apixaban [Eliquis] 2.5 mg PO BID 07/27/18 07/30/18 Levothyroxine Sodium [Synthroid] 75 mcg PO DAILY 07/27/18 07/30/18 predniSONE 5 mg PO DAILY 07/30/18 07/30/18 Previous Rx's Medication Instructions Recorded predniSONE 50 mg PO DAILY #5 tablet 07/30/18 Allergies Allergy/AdvReac Type Severity Reaction Status Date / Time adalimumab [From Humira] Allergy Unknown Palpitations, Verified 04/29/24 13:11 Sweats adhesive Allergy Unknown Unknown Verified 04/29/24 13:11 codeine Allergy Unknown Unknown Verified 04/29/24 13:11 latex Allergy Unknown Unknown Verified 04/29/24 13:11 morphine Allergy Unknown Unknown Verified 04/29/24 13:11 rofecoxib [From Vioxx] Allergy Unknown Palpitations, Verified 04/29/24 13:11 Sweats. methotrexate Allergy Palpitations, Verified 04/29/24 13:11 Sweats Sulfa (Sulfonamide Allergy Unknown Verified 04/29/24 13:11 Antibiotics) aspirin AdvReac Unknown Upset Verified 04/29/24 13:11 Stomach faust inhibitors Allergy Unknown Unknown Uncoded 07/30/18 12:36 gold Allergy Unknown Unknown Uncoded 07/30/18 12:36 Review of Systems ROS Statement: Those systems with pertinent positive or pertinent negative responses have been documented in the HPI. ROS Other: All systems not noted in ROS Statement are negative. 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 , STATES LEFT EYE LOSING BLOOD FLOW AND POOR VISION., HX OF MULTIPLE FEET SURGERIES WITH PARTIAL LEFT FOOT AMPUTATION - DIFFICULTY WALKING DISTANCE - USES WHEELCHAIR. 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 History of Any Multi-Drug Resistant Organisms: MRSA Date of last positivie culture/infection: ?2006 MDRO Source:: SKIN Past Surgical History: Appendectomy, Back Surgery, Cholecystectomy, Hernia Repair, Hysterectomy, Joint Replacement, Orthopedic Surgery Additional Past Surgical History / Comment(s): HEMORRHOIDS, TOTAL LEFT KNEE, RIGHT ANKLE, BRADLEY SHOULDERS, JOINTS IN HANDS, , NUMBEROUS FOOT SURGERIES AND PARTIAL LEFT FOOT AMPUTATION. Past Anesthesia/Blood Transfusion Reactions: No Reported Reaction Additional Past Anesthesia/Blood Transfusion Reaction / Comment(s): HX OF BLOOD TRANSFUSIONS ( NO REACTIONS) Past Psychological History: Anxiety Past Alcohol Use History: None Reported Past Drug Use History: None Reported - Past Family History Sister(s) Family Medical History: Cancer Additional Family Medical History / Comment(s): LUNG CANCER General Exam Limitations: no limitations General appearance: alert, in no apparent distress Eye exam: Present: normal appearance, PERRL, EOMI. Absent: scleral icterus, conjunctival injection, periorbital swelling ENT exam: Present: normal exam, mucous membranes moist, other (Blood clot in place right nare. Left nare patent. Mild blood in posterior oropharynx) Neck exam: Present: normal inspection. Absent: tenderness, meningismus, lymphadenopathy Respiratory exam: Present: normal lung sounds bilaterally. Absent: respiratory distress, wheezes, rales, rhonchi, stridor Cardiovascular Exam: Present: regular rate, normal rhythm, normal heart sounds. Absent: systolic murmur, diastolic murmur, rubs, gallop, clicks Skin exam: Present: warm, dry, intact, normal color. Absent: rash Course Vital Signs 04/29/24 04/29/24 04/29/24 13:09 14:31 15:04 Temperature 98.1 F Pulse Rate 89 84 83 Respiratory 18 18 16 Rate Blood Pressure 143/85 124/78 118/78 O2 Sat by Pulse 97 96 95 Oximetry - Reevaluation(s) Reevaluation #1: 04/29/24 14:28 Patient reevaluated. No active bleeding. Patient in no signs of acute distress. Reevaluation #2: 04/29/24 15:20 Patient reevaluated. No active bleeding. Patient eager for discharge. Patient no signs of acute distress. Medical Decision Making - Medical Decision Making Was pt. sent in by a medical professional or institution (, PA, PROGRAM SUPPORT CLERK, urgent care, hospital, or residential...) When possible be specific @ -No Did you speak to anyone other than the patient for history (EMS, parent, family, police, friend...)? What history was obtained from this source @ -Been aiding in HPI and past medical history as patient is hard of hearing. Did you review nursing and triage notes (agree or disagree)? Why? @ -I reviewed and agree with nursing and triage notes Were old charts reviewed (outside hosp., previous admission, EMS record, old EKG, old radiological studies, urgent care reports/EKG's, residential records)? Report findings @ -No old charts were reviewed Differential Diagnosis (chest pain, altered mental status, abdominal pain women, abdominal pain men, vaginal bleeding, weakness, fever, dyspnea, syncope, headache, dizziness, GI bleed, back pain, seizure, CVA, palpatations, mental health, musculoskeletal)? @ -Bone fracture, epistaxis, nasal foreign body, septal hematoma This list is not meant to be all-inclusive EKG interpreted by me (3pts min.). @ -None X-rays interpreted by me (1pt min.). @ -None done CT interpreted by me (1pt min.). @ -None done U/S interpreted by me (1pt. min.). @ -None done What testing was considered but not performed or refused? (CT, X-rays, U/S, labs)? Why? @ -None What meds were considered but not given or refused? Why? @ -None Did you discuss the management of the patient with other professionals (professionals i.e. , PA, PROGRAM SUPPORT CLERK, lab, RT, psych nurse, social worker school, criminal lawyer, teacher, sanitation officer, case making machine operator)? Give summary @ -No Was smoking cessation discussed for >3mins.? @ -No Was critical care preformed (if so, how long)? @ -No Were there social determinants of health that impacted care today? How? (Homelessness, low income, unemployed, alcoholism, drug addiction, transportation, low edu. Level, literacy, decrease access to med. care, [facility], rehab)? @ -No Was there de-escalation of care discussed even if they declined (Discuss DNR or withdrawal of care, Hospice)? DNR status @ -No What co-morbidities impacted this encounter? (DM, HTN, Smoking, COPD, CAD, Cancer, CVA, ARF, Chemo, Hep., AIDS, mental health diagnosis, sleep apnea, morbid obesity)? @ -On Eliquis Was patient admitted / discharged? Hospital course, mention meds given and route, prescriptions, significant lab abnormalities, going to OR and other pertinent info. @ -Discharge. 83-year-old female presented to the ER with a chief complaint of epistaxis. History and physical exam completed. Vitals within normal limits. Patient had no signs of acute distress. Exam remarkable for blood clot to right nare. Minimal active bleeding. Left nare patent with no signs of septal hematoma. Afrin administered to bilateral nostrils and nose clamp placed. After approximately 20-30 minutes of pressure nose clamp removed. Patient monitored in the ER for approximately 1 hour post bleeding cessation. No rebleeding occurred. Patient stable for discharge at this time. Advise close follow-up with PCP. ENT referral given for possible recauterization of vessel. Return parameters discussed. Patient discharged in stable condition. and patient verbally expressed understanding and agree with care plan. As discussed with the attending, Dr. Crandall. Undiagnosed new problem with uncertain prognosis? @ -No Drug Therapy requiring intensive monitoring for toxicity (Heparin, Nitro, Insulin, Cardizem)? @ -No Were any procedures done? @ -No Diagnosis/symptom? @ -Epistaxis Acute, or Chronic, or Acute on Chronic? @ -Acute Uncomplicated (without systemic symptoms) or Complicated (systemic symptoms)? @ -Uncomplicated Side effects of treatment? @ -No Exacerbation, Progression, or Severe Exacerbation? @ -No Poses a threat to life or bodily function? How? (Chest pain, [place], [place], pneumonia, PE, COPD, DKA, ARF, appy, cholecystitis, CVA, Diverticulitis, Homicidal, Suicidal, threat to staff... and all critical care pts) @ -No Disposition Clinical Impression: Epistaxis Disposition: HOME SELF-CARE Condition: Stable Instructions (If sedation given, give patient instructions): Nosebleed (ED) Additional Instructions: Follow-up with PCP. If bleeding were to recur blow nose and apply nose clamp. Return to the ER for any new or worsening concerns. Is patient prescribed a controlled substance at d/c from ED?: No Referrals: Nonstaff,Physician [Primary Care Provider] - 1-2 days Camden Narvaez MD [STAFF PHYSICIAN] - 1-2 days Time of Disposition: 15:20
[2024-04-29] MEDS: OXYMETAZOLINE 0.05% NASL SPRAY 1 SPRAY BOTTLE NASAL STA (13:39)
[2024-04-29 15:07] VITALS: BP 118/78; PULSE 83; RESP 16
== END 2024-04-29 15:59 | disposition home or self-care (01) ==
LOC: EC 12:57
CPT/HCPCS: 99283